=== PATIENT | female | born 1975 | race Two or more races ===

== ENCOUNTER 2023-08-27 13:15 | Emergency (ER) | payer OTHER ==
[~2023-08-27] VITALS: Ht 160 cm; Wt 120.7 kg
[2023-08-27] MEDS ORDERED: LEVOTHYROXINE25 MCG PO (13:28)
[2023-08-27] MEDS ORDERED: PREVACID30 MG (13:28)
[2023-08-27] MEDS ORDERED: CARAFATE1 GM (13:28)
[2023-08-27] MEDS ORDERED: ATACAND4 MG (13:28)
[2023-08-27] MEDS ORDERED: WELLBUTRIN SR150 MG PO (13:29)
[2023-08-27] MEDS ORDERED: DOXEPIN HCL3 MG PO (13:29)
[2023-08-27] MEDS ORDERED: 0.9 % SODIUM CHLORIDE 1,000 ML IV STA (13:42)
[2023-08-27 14:19] LABS: HEMATOCRIT 36.4 % (36.0-45.00); HEMOGLOBIN 12.4 g/dL (12.0-15.00); MEAN CELL VOLUME 81.7 fL (80.00-100.00); MEAN CORPUSCULAR HEMOGLOBIN 27.8 pg (27.00-32.0); PLATELET COUNT 284 K/uL (150-450); RED BLOOD COUNT 4.45 M/uL (4.00-6.00); RED CELL DISTRIBUTION WIDTH 13.9 % (11.5-14.5)
[2023-08-27 14:33] LABS: CALCIUM 8.6 mg/dL (8.5-10.1); CREATININE SERUM 0.76 mg/dL (0.55-1.02); GFR 81.57; POTASSIUM 3.37 mEq/L (3.5-5.1)
[2023-08-27 15:44] LABS: PH,URINE 5.5 (5.0-8.0); URINE APPEARANCE Clear; URINE BILIRRUBIN Negative (NEGATIVE); URINE BLOOD Negative; URINE COLOR Yellow; URINE GLUCOSE Negative (NEGATIVE); URINE LEUKOCYTE Negative; URINE NITRATE Negative; URINE PROTEIN Negative (NEGATIVE); URINE UROBILINOGEN 0.2 E.U./dl
[2023-08-27 15:45] LABS: URINE BACTERIA 13.8 uL (0.0-1933)
[2023-08-27 16:02] LABS: URINE RBC 1.5 uL (0.0-20.8); URINE WBC 1.6 uL (0.0-23.2)
[2023-08-27] MEDS ORDERED: FAMOTIDINE/PF 20 MG in 0.9 % SODIUM CHLORIDE 8 ML IV PUSH STA (16:20)
[2023-08-27] MEDS ORDERED: HYOSCYAMINE SULFATE 0.125 MG TAB.SUBL SL ONE (16:30)
[2023-08-27] MEDS ORDERED: ONDANSETRON HCL 2 MG/ML VIAL IV ONE (16:30)
[2023-08-27] MEDS ORDERED: PEPCID AC20 MG PO (17:51)
[2023-08-27] MEDS ORDERED: ANALPRAM HC 2.530 GM RECTAL (17:51)
== END 2023-08-27 18:13 | disposition home or self-care (01) ==
LOC: ER 13:16
PROVIDERS: Emergency Medicine
DX: K62.5 Hemorrhage of anus and rectum (principal); I10 Essential (primary) hypertension; E03.9 Hypothyroidism, unspecified; Z88.8 Allergy status to other drugs, medicaments and biological substances
CPT/HCPCS: 36415; 74176; 96365; 96366; 99284; J2405; J3490

== ENCOUNTER → 2023-10-19 | Emergency (ER) | payer OTHER ==
[~2023-10-19] VITALS: Ht 160 cm; Wt 113.9 kg
[~2023-10-19] MED LIST: ANALPRAM HC 2.530 GM RECTAL; ATACAND4 MG; CARAFATE1 GM; DOXEPIN HCL3 MG PO; LEVOTHYROXINE25 MCG PO; PEPCID AC20 MG PO; PREVACID30 MG; WELLBUTRIN SR150 MG PO
== END | disposition left against medical advice (07) ==
LOC: ER 21:49
DX: Z53.21 Procedure and treatment not carried out due to patient leaving prior to being seen by health care provider (principal)